=== PATIENT | female | born 1965 | race Caucasian/White ===

== ENCOUNTER 2016-06-15 18:17 | Emergency (ER) | payer MEDICAID ==
[~2016-06-15] VITALS: Ht 162.6 cm; Wt 77.0 kg
[2016-06-15 20:27] VITALS: BP 118/75
== END 2016-06-15 21:25 | disposition home or self-care (01) ==
LOC: ER 18:17
DX: L02.213 Cutaneous abscess of chest wall (principal); I10 Essential (primary) hypertension; E11.9 Type 2 diabetes mellitus without complications; E78.00 Pure hypercholesterolemia, unspecified
CPT/HCPCS: 99283

== ENCOUNTER 2016-06-18 19:06 | Emergency (ER) | payer MEDICAID ==
[~2016-06-18] VITALS: Ht 157.5 cm; Wt 76.0 kg
[2016-06-18] MEDS ORDERED: DIPHENHYDRAMINE 50MG CAPSULE PO ONE (21:30)
[2016-06-18 22:30] VITALS: BP 110/79
== END 2016-06-18 22:35 | disposition home or self-care (01) ==
LOC: ER 21:11
DX: L50.9 Urticaria, unspecified (principal); E11.9 Type 2 diabetes mellitus without complications; I10 Essential (primary) hypertension; E78.00 Pure hypercholesterolemia, unspecified
CPT/HCPCS: 81025; 99282; Q0163